=== PATIENT | male | born 1985 | race Caucasian/White ===

== ENCOUNTER 2018-04-02 12:53 | Inpatient (IN) ==
[2018-04-02] MEDS ORDERED: Morphine Sulfate Inj 8 MG/ML Vial IV.PUSH ONE (13:28)
--- NOTE | 2018-04-02 15:03 | ED ---
HPI General Chief Complaint: Abdominal Pain Stated Complaint: Medical complaint/GI? Time Seen by Provider: 04/02/18 13:22 History of Present Illness HPI narrative: This is a 33-year-old male with no significant past medical history, presents today with complaints of right inguinal hernia that he cannot reduce. Patient states he has had this hernia for many years. He states he normally can reduce on his own. The patient reports that it came out greater than 24 hours ago and has been trying to put it in since then. He states that it is extremely painful now. He denies any vomiting but does state he is nauseous. He denies passing any gas. There are no other complaints at the time of examination. Related Data Home Medications Medication Instructions Recorded Confirmed No Known Home Medications 04/02/18 04/02/18 Allergies Allergy/AdvReac Type Severity Reaction Status Date / Time No Known Allergies Allergy Verified 04/02/18 13:14 Review of Systems ROS: all other systems reviewed are negative Constitutional Denies chills and Denies fever(s) Eyes Reports system reviewed and no additional complaints, except as docu ENT Reports system reviewed and no additional complaints, except [facility] Cardiovascular Reports system reviewed and no additional complaints, except as [facility] Respiratory Reports system reviewed and no additional complaints, except as docu Gastrointestinal Reports abdominal pain (Inguinal), Reports nausea and Denies vomiting Genitourinary Reports system reviewed and no additional complaints, except as docu Musculoskeletal Reports system reviewed and no additional complaints, except as [facility] Neurologic Reports system reviewed and no additional complaints, except as docu PMFSH Medical History Medical History Patient denies medical problems (Acute) Surgical History Surgical History No history of previous surgery (Acute) Social History Social History Substance History: No History of Abuse Second Hand Smoke Exposure: No Smoking Status: Never smoker How Often Do You Have a Drink Containing Alcohol: 2 to 4 times a month Recent Travel in [facility] within the Last 8 Weeks: No Recent Out of Country Travel within the Last 8 Weeks: No Immunization History Tetanus Immunization: Unsure Exam Narrative Exam Narrative: GENERAL: Well-developed well-nourished male in no acute respiratory distress. SKIN: Focused skin assessment warm/dry. HEAD: Atraumatic. Normocephalic. EYES: No scleral icterus. No injection or drainage. ENT: No nasal bleeding or discharge. Mucous membranes pink and moist. NECK: Trachea midline. No JVD. CARDIOVASCULAR: Regular rate and rhythm. No murmur appreciated. RESPIRATORY: No accessory muscle use. Clear to auscultation. Breath sounds equal bilaterally. GASTROINTESTINAL: Abdomen soft, nondistended. On examination patient right inguinal area, there is large hernia of the is both in the canal and in his scrotum. MUSCULOSKELETAL: No obvious deformities. No clubbing. No cyanosis. No edema. NEUROLOGICAL: Awake and alert. No obvious cranial nerve deficits. Motor grossly within normal limits. Normal speech. Procedures Procedural Sedation Indications: other (Right inguinal hernia reduction) ASA Class: ASA 1 Normal Healthy Patient Preparation: satellite project site monitor applied, pulse oximeter, capnometry used, supplemental O2 applied, suction/airway equipment at bedside and IV secured IV Propofol Dose (mgs): 200 Patient Tolerated Procedure: well Complications: none Course Initial Documented Vital Signs Temperature 98.5 F 04/02/18 13:14 Pulse Rate 70 04/02/18 13:14 Respiratory Rate 14 04/02/18 13:14 Blood Pressure 160/87 H 04/02/18 13:14 Pulse Oximetry 100 04/02/18 13:14 Last Documented Vital Signs Temperature 98.5 F 04/02/18 13:14 Pulse Rate 70 04/02/18 13:14 Respiratory Rate 12 04/02/18 14:49 Blood Pressure 160/87 H 04/02/18 13:14 Pulse Oximetry 98 04/02/18 14:[address] [facility] Narrative Medical decision making narrative: 33-year-old male presents today with complaints of right inguinal hernia that he cannot reduce. Patient states is been out for greater than 24 hours. I discussed the case with Dr. Alok Fan, on-call general surgeon, who was gracious enough to come down and see the patient with me. We attempted conscious sedation reduction however were unsuccessful. The patient will be taken emergently to the operating room. Risks and benefits of the procedure were discussed with the patient and he is amenable. Medical Screen Exam Complete: Yes Emergency Medical Condition: Yes Differential Diagnosis Differential Diagnosis: Incarcerated hernia versus reducible hernia versus necrotic bowel. Discharge Plan Discharge Disposition Patient Disposition: ED Admit(ED Internal Use Only) Discharge Order Discharge Orders: ED Use Only Admit Order (Routine); Ordered 04/02/18 Ordered By: Krunal Velasquez Discharge Details Diagnosis: Incarcerated right inguinal hernia Physicians Team ED Provider: Krunal Velasquez Primary Care Provider: Primary Care Jaycee,Helen Attending Provider: Alok Fan Status ED Status: Admitted Observation Patient
[2018-04-02] MEDS ORDERED: Sugammadex Inj 200 MG/2 ML Vial IV.PUSH ONE (15:23)
[2018-04-02] MEDS ORDERED: Bupivacaine/Epinephrine Inj 0.25% 50 ML Vial ONE (15:34)
[2018-04-02] MEDS ORDERED: ceFAZolin Inj 1 GM Vial (Addvantage) IV.SIG ONE (15:45)
[2018-04-02 15:57] LABS: Baso % (Auto) 0.2 % (0.0-2.0); Eos # (Auto) 0.2 th/mm3 (0.0-0.4); Eos % (Auto) 2.1 % (0.0-4.0); Hematocrit 43.5 % (39.0-51.0); Hemoglobin 15.6 gm/dL (13.0-17.0); Lymph # (Auto) 1.3 th/mm3 (1.0-4.8); Mean Corpuscular HGB Conc 35.8 % (32.0-36.0); Mean Corpuscular Hemoglobin 31.1 pg (27.0-34.0); Mean Corpuscular Volume 86.8 fL (80.0-100.0); Mean Platelet Volume 7.5 fL (7.0-11.0); Mono # (Auto) 0.7 th/mm3 (0.0-0.9); Mono % (Auto) 7.7 % (0.0-8.0); Neut # (Auto) 6.7 th/mm3 (1.8-7.7); Platelet Count 325 th/mm3 (150-450); Red Blood Count 5.01 mil/mm3 (4.50-5.90); Red Cell Distribution Width 12.7 % (11.6-17.2); White Blood Count 8.9 th/mm3 (4.0-11.0)
[2018-04-02] MEDS ORDERED: Bisacodyl 10 MG Supp RECTAL PRN (15:59)
[2018-04-02] MEDS ORDERED: Ketorolac Inj 30 MG/ML (IVP) Vial IV.PUSH PRN (15:59)
[2018-04-02] MEDS ORDERED: Promethazine 25 MG Supp RECTAL PRN (15:59)
[2018-04-02] MEDS ORDERED: Post-op Orders (for Pharmacy) OTHER ONE (15:59)
--- NOTE | 2018-04-02 15:59 | P.OP ---
- Preoperative Diagnosis (1) Incarcerated right inguinal hernia - Postoperative Diagnosis (1) Incarcerated right inguinal hernia Procedure: open right inguinal hernia repair Anesthesia: GETA Surgeon: Alok Fan MD Estimated blood loss (mL): 5 Pathology: none sent Operation and Findings: viable bowel
[2018-04-02 16:12] LABS: Anion Gap 7 meq/L (5-15); Blood Urea Nitrogen 12 mg/dL (7-18); Calcium 9.2 mg/dL (8.5-10.1); Chloride 104 meq/L (98-107); Glomerular Filtration Rate Greater Than 89 mL/min (>89); Glucose,Random 81 mg/dL (74-106); Potassium 3.7 meq/L (3.5-5.1); Sodium 139 meq/L (136-145)
[2018-04-02 16:15] LABS: INR 1.1 Ratio; Prothrombin Time 10.9 sec (9.8-11.6)
[2018-04-02] MEDS ORDERED: *Meperidine Inj 25 MG/ML Vial PERIprocedural Use ONLY ONE (17:43)
[2018-04-02] MEDS ORDERED: fentaNYL Citrate Inj 100 MCG/2 ML Ampul ONE ×2 (17:50→17:51)
[2018-04-02] MEDS: Sod Chloride 0.9% Inj 1,000 ML IV.CONT SCH (17:53)
--- NOTE | 2018-04-02 19:55 | MH ---
cc: Alok Fan MD DATE OF ADMISSION: 04/02/2018 CHIEF COMPLAINT: Abdominal pain, inguinal hernia. HISTORY OF PRESENT ILLNESS: The patient is a 33-year-old male who presents with acute onset of right groin pain. The patient states history of inguinal hernia for a long time that is easily reducible, sometimes taking up to 5 hours to reduce. The patient states the hernia has been out for approximately 20 hours and is unable to be reduced. He states the pain is severe. It is a 9-04/09/09, some improvement with IV pain medication, but pretty exquisitely tender sharp pain located in the groin, nonradiating. The patient also has nausea, denies vomiting and has not had a bowel movement or passed gas since the obstruction. The patient denies fevers or chills. PAST MEDICAL HISTORY: The patient has no medical history. PAST SURGICAL HISTORY: Tonsillectomy. SOCIAL HISTORY: Denies smoking, ETOH or IVDA. ALLERGIES: NO KNOWN DRUG ALLERGIES. MEDICATIONS: See EMR. FAMILY HISTORY: Denies diabetes or hypertension. REVIEW OF SYSTEMS: GENERAL: Denies fever or chills. HEENT: Denies eye pain, ear pain. NECK: Denies swelling or pain. LUNGS: Denies cough or wheeze. HEART: Denies palpitations or chest pain. ABDOMEN: Complains of nausea and abdominal pain, hernia. GENITOURINARY: Denies dysuria. ENDOCRINE: Denies polyuria or polydipsia. INTEGUMENT: Denies any masses or lesions. NEUROLOGIC: Denies numbness or tingling. PHYSICAL EXAMINATION: GENERAL: The patient in no acute distress. VITAL SIGNS: Temperature 98.5, pulse 70, respiration 14, blood pressure 160/87, saturation 100%. HEENT: Pupils equal, round, reactive. NECK: Supple. Trachea midline. LUNGS: Clear to auscultation, bilateral expansion. HEART: S1, S2. Regular. ABDOMEN: Soft, nontender. Right groin incarcerated inguinal hernia exquisitely tender to palpation. EXTREMITIES: Warm and well perfused. NEUROLOGIC: GCS of 15. A 5/5 in all extremities. INTEGUMENT: No obvious masses or lesions. LABORATORY AND DIAGNOSTIC DATA: WBC is 8.9, hemoglobin 15.6, hematocrit 43.5, platelets 325. Sodium 139, potassium 3.7, chloride 104, BUN 12, creatinine 0.8, calcium 9.2. ASSESSMENT: The patient is a 33-year-old male who presents with incarcerated inguinal hernia. PLAN: After a full workup, issues at this point, the patient is to be n.p.o., IV fluids, IV pain control. We will take the patient emergently to the operating room for operative repair. Discussed with the patient in detail for possible bowel resection. The patient understands, is aware and agrees. Alok Fan MD LSDiaz/sv , 07:27 PM , 07:35 PM
--- NOTE | 2018-04-02 20:39 | MP ---
cc: Alok Fan MD DATE OF OPERATION: 04/02/2018 PREOPERATIVE DIAGNOSIS: Incarceration of right inguinal hernia. POSTOPERATIVE DIAGNOSES: Incarceration of right inguinal hernia, indirect right inguinal hernia. WIRE DRAWING DIE MAKER: Mo Young MD. Due to complexity of the surgical case, Dr. Young assisted with retraction and suturing. ANESTHESIA: GETA. IV FLUIDS: See anesthesia sheet. ESTIMATED BLOOD LOSS: 5 mL DRAINS: None. COMPLICATIONS: None. WOUND CLASSIFICATION: Clean. FINDINGS: Incarceration of omentum and a small amount of bowel. No evidence of necrosis. Edematous hernia. Good hemostasis. INDICATIONS: The patient is a 33-year-old male who presents with longstanding history of inguinal hernia, easily able to reduce. However, this time incarcerated and unable to reduce. Therefore, decision was for emergency operation. DETAILS OF PROCEDURE: The patient was taken to the operating suite, placed in supine position. He was prepped and draped in the usual sterile fashion after induction of general endotracheal anesthesia. A preoperative timeout was done stating correct patient, procedure, and surgical site. We were all in agreement with this. Attention was directed to the right groin where an oblique incision was made between the pubic tubercle and the IS. This was done with a 15 blade. Further dissection was done with Bovie electrocautery to the fascia. Fascia was incised and the external oblique was identified. This fascia was cleaned off, and a small ashkan was made in the direction of the fibers. Metzenbaum was used to transect the fibers proximal and distal to open up the inguinal ring. Ilioinguinal nerve was protected. The sac was noted to be very large. The sac was mobilized and a [place] placed in order to encompass the sac and structures. The sac was opened, and omentum and a small piece of bowel was noted. This was reduced back into the abdomen without evidence of necrosis. A small amount of edematous fluid also noted. The sac was mobilized off the cord structures. The sac was ligated with 0 Vicryl suture. This was reduced back into the abdomen. The pubic tubercle was palpated, and the floor was completely cleared off as well. A 3 x 6 Atrium mesh was obtained and cut diagonally and cut at the center to create the leaflets. Mesh was placed within the inguinal floor and attached with interrupted Ethibonds. The leaflets were crossed and sutured to create the internal ring. Cord structures were noted to be viable, and vas was identified. This was protected. The medial aspect of the mesh was sutured to conjoint tendon and lateral aspect to Nishant's. Next, the external oblique fibers were closed with 3-0 Vicryl. Baljeet's was closed with 3-0 Vicryl, and 4-0 Vicryl was used for subcuticular stitch. Sterile dressings were placed, including Mastisol and Steri-Strips. The patient tolerated the procedure well without operative complications. All lap and instrument counts were correct at the end of the procedure. The patient was extubated and taken satisfactory. MD LINA Green/qamar , 07:32 PM , 07:41 PM
[2018-04-02] MEDS: Senna/Docusate Sodium 8.6/50 MG Tablet PO SCH (21:50)
[2018-04-03] MEDS: ceFAZolin 1 GM Premix Inj 1 GM/50 ML PIGGYBACK IV.SIG SCH ×3 (00:03→15:00)
[2018-04-03] MEDS: Sod Chloride 0.9% Inj 1,000 ML IV.CONT SCH ×2 (02:15→06:14)
[2018-04-03] MEDS: Senna/Docusate Sodium 8.6/50 MG Tablet PO SCH (09:08)
[2018-04-03 12:20] VITALS: RESP 18
--- NOTE | 2018-04-03 15:16 | P.DS ---
Date of admission: 04/02/18 16:04 Primary care physician: No Primary Care Physician Attending physician on discharge: Alok Fan Anticipated date of discharge: 04/03/18 Brief History from admission: 33 year old male s/p RIGHT Inguinal hernia repair DS: Medications - Discharge Medications Prescriptions: oxycodone-acetaminophen 2 tab PO Q4H PRN #20 tab PRN Reason: acute post op pain exception DS: Summary Hospital Course: This is a 33 year old male POD1 right inguinal hernia repair. The patient was able to tolerate a regular diet. His pain is controlled using oral pain medications. He will follow up in the office. - Time Spent with Patient Total time spent providing and/or coordinating discharge services: Less than 30 minutes - Quality: VTE Deep Vein Thrombosis/Pulmonary Embolism Present on Admission: No Exam Vital signs: Vital Signs 04/02/18 17:42 04/02/18 17:45 04/02/18 18:00 Temperature 98.7 F Pulse Rate 123 H 112 H 114 H Respiratory Rate 17 17 16 Blood Pressure 151/67 H 148/64 H 144/66 H Pulse Oximetry 97 94 L 94 L 04/02/18 18:14 04/02/18 18:35 04/02/18 20:00 Temperature 98.4 F 98.5 F 98.6 F Pulse Rate 97 H 89 Respiratory Rate 18 18 Blood Pressure 134/65 133/71 Pulse Oximetry 98 95 04/03/18 00:00 04/03/18 04:00 04/03/18 08:00 Temperature 98.2 F 98.3 F 98.8 F Pulse Rate 86 57 L 54 L Respiratory Rate 18 16 17 Blood Pressure 133/73 108/56 L 125/55 L Pulse Oximetry 97 94 L 97 04/03/18 11:41 04/03/18 12:00 Temperature 98.6 F Pulse Rate 75 Respiratory Rate 16 18 Blood Pressure 126/60 Pulse Oximetry 95 Intake & Output 04/02/18 04/03/18 04/03/18 18:59 06:59 18:59 Intake Total 700 / 700 1300 / 1300 100 / 100 Output Total 5 / 5 100 / 100 Balance 695 / 695 1200 / 1200 100 / 100 Weight 74.843 kg 77.5 kg Intake: IV 1300 / 1300 100 / 100 NS Inj 1,000 ML @ 100 mls/hr IV 1000 / 1000 .CONT .Q10H PERLA Rx#:[id number] Ancef 1 GM Premix Inj 1 gm In 100 / 100 50 ml @ 200 mls/hr IV.SIG Q8H PERLA Rx#:[id number] Flagyl 500 MG Inj 100 ML @ 200 200 / 200 100 / 100 mls/hr IV.SIG Q8H PERLA Rx#: [id number] Anesthesia Amount 700 / 700 Output: Estimated Blood Loss 5 / 5 Gastric Drainage 100 / 100 Right Nare Nasogastric Tube 100 / 100 Other: # Voids 5 Date of Last Bowel Movement 04/02/18 Narrative: Alert and awake inc c/d/i Results Procedures completed during hospitalization: RIGHT inguinal hernia repair Labs on day of discharge: Labs from last 24 hours 04/02/18 04/02/18 04/02/18 15:44 15:44 15:44 WBC 8.9 RBC 5.01 Hgb 15.6 Hct 43.5 MCV 86.8 MCH 31.1 MCHC 35.8 RDW 12.7 Plt Count 325 MPV 7.5 Neut % (Auto) 75.0 H Lymph % (Auto) 15.0 Granite % (Auto) 7.7 Eos % (Auto) 2.1 Baso % (Auto) 0.2 Neut # (Auto) 6.7 Lymph # (Auto) 1.3 Granite # (Auto) 0.7 Eos # (Auto) 0.2 Baso # (Auto) 0.0 WBC Differential . Differential Comment Auto diff final PT 10.9 INR 1.1 APTT Sodium 139 Potassium 3.7 Chloride 104 Carbon Dioxide 28.0 Anion Gap 7 BUN 12 Creatinine 0.83 Estimated GFR Greater than 89 Random Glucose 81 Calcium 9.2 04/02/18 15:44 WBC RBC Hgb Hct MCV MCH MCHC RDW Plt Count MPV Neut % (Auto) Lymph % (Auto) Granite % (Auto) Eos % (Auto) Baso % (Auto) Neut # (Auto) Lymph # (Auto) Granite # (Auto) Eos # (Auto) Baso # (Auto) WBC Differential Differential Comment PT INR APTT 27.1 Sodium Potassium Chloride Carbon Dioxide Anion Gap BUN Creatinine Estimated GFR Random Glucose Calcium Discharge Plan - Discharge Disposition Patient Disposition: 01 Discharge Home - Discharge Condition Condition: Good - Discharge Order Discharge Orders: Discharge Order (Routine); Ordered 04/03/18 Ordered By: Jessy Swanson - Discharge Details Anticipated Discharge Date: 04/03/18 Discharge Comment: rx on chart - Physicians Team Primary Care Provider: Primary Care Helen Champion Attending Provider: Alok Fan
[2018-04-03 16:24] VITALS: BP 134/63; PULSE 69; TEMP 98.1; O2SAT 97
== END 2018-04-03 17:04 | disposition home or self-care (01) | DRG 352 ==
LOC: NEPC 12:53 → NEDA 12:53 → N07 18:19
PROVIDERS: ADMIT Surgery; ATTEND Surgery
DX: K40.30 Unilateral inguinal hernia, with obstruction, without gangrene, not specified as recurrent
CPT/HCPCS: 80048; 85025; 85610; 85730; 90774; 90775; 90784; 94770; 96374; 96375; 99285; C1781; C8952; J0131; J0690; J0780; J2175; J2250; J2270; J2704; J3010; J7030